=== PATIENT | male | born 1995 | race Caucasian/White ===

== ENCOUNTER 2017-07-27 08:00 | Emergency (ER) | payer MEDICAID, OTHER ==
[~2017-07-27] VITALS: Ht 165.1 cm; Wt 100.0 kg
[~2017-07-27 08:00] MED LIST: IBUP-2070 PO
[2017-07-27] MEDS ORDERED: AMOXICILLIN TRIHYDRATE 250 MG CAPSULE PO ONE (09:15)
[2017-07-27 09:28] VITALS: BP 119/81
== END 2017-07-27 09:29 | disposition home or self-care (01) ==
LOC: EMS 08:02
DX: J03.90 Acute tonsillitis, unspecified (principal)
CPT/HCPCS: 99283